=== PATIENT | female | born 1970 ===

== ENCOUNTER 2020-10-23 21:26 | Inpatient (IN) | payer OTHER ==
[~2020-10-23] VITALS: Ht 152.4 cm; Wt 48.4 kg
[2020-10-23] MEDS ORDERED: CIPROFLOXACIN IV 400MG/200ML 200 ML IV SCH (22:15)
[2020-10-23] MEDS ORDERED: metroNIDAZOLE 500MG/100ML IVPB 100 ML IV SCH (22:15)
[2020-10-24] VITALS (12 sets, daily range): BP systolic 102–149; BP diastolic 65–85
[2020-10-24] MEDS: PANTOPRAZOLE 40 MG (PROTONIX) VIAL IV SCH ×2 (01:19→08:59)
[2020-10-24] MEDS: LACTATED RINGERS 1,000 ML IV SCH ×5 (01:19→21:41)
[2020-10-24] MEDS: ONDANSETRON 4 MG (ZOFRAN) ORAL DISSOLVE TAB PO PRN ×2 (01:19→07:02)
[2020-10-24] MEDS: morphine INJ 4 MG/ML 1 ML (VIAL/SYRINGE) IVP PRN ×8 (01:19→23:50)
[2020-10-24 08:38] LABS: BASOPHILS % (AUTO) 0 % (0-10); EOSINOPHILS % (AUTO) 0 % (0-10); HEMATOCRIT 34 % (35-52); HEMOGLOBIN 11.3 g/dL (11.5-16.0); LYMPHOCYTES % (AUTO) 10 % (12-44); MEAN CORPUSCULAR HEMOGLOBIN 32 pg (25-34); MEAN CORPUSCULAR HGB CONC 33 g/dL (32-36); MEAN CORPUSCULAR VOLUME 95 fL (80-99); MEAN PLATELET VOLUME 9.4 fL (9.0-12.2); MONOCYTES # (AUTO) 0.4 10^3/uL (0.0-1.0); MONOCYTES % (AUTO) 4 % (0-12); NEUTROPHILS # (AUTO) 8.4 10^3/uL (1.8-7.8); NEUTROPHILS % (AUTO) 85 % (42-75); PLATELET COUNT 193 10^3/uL (130-400); WHITE BLOOD COUNT 9.8 10^3/uL (4.3-11.0)
[2020-10-24] MEDS: CIPROFLOXACIN IV 400MG/200ML 200 ML IV SCH ×2 (08:57→21:00)
[2020-10-24 08:58] LABS: ALBUMIN 3.2 GM/DL (3.2-4.5); CALCIUM 8.5 MG/DL (8.5-10.1); CREATININE SERUM 0.72 MG/DL (0.60-1.30); POTASSIUM 3.7 MMOL/L (3.6-5.0); TOTAL PROTEIN 5.6 GM/DL (6.4-8.2)
[2020-10-24] MEDS: metroNIDAZOLE 500MG/100ML IVPB 100 ML IV SCH ×2 (08:59→22:03)
--- NOTE | 2020-10-24 09:02 | History & Physical-Surgical ---
DEBORAJAMESON 10/24/20 0902: History of Present Illness History of Present Illness Reason for visit/HPI Acute Diverticulitis Date of Admission Oct 24, 2020 at 00:16 Date Seen by a Provider: Oct 24, 2020 Time Seen by a Provider: 07:16 I consulted on this patient on 10/24/20 07:16 Pt is 50F with diffuse pain in lower abdomen. She reports a known history of diverticulitis occurring this year on August 03 and also September 11, previously managed by "Flagbere" and Allro by her PCP, which resolved without further incident. She also had screening colonoscopy performed October 15 at [facility] by Dr. Hayes, a week later October 22 she reports feeling very abrupt onset of abdominal sx which she feels are consistent with her known diverticulitis. Denies any history of GB or appendix pain or PSH to these organs. She is concerned about the possible need for surgery and if she will need a colostomy bag. Attending Physician Tyrone Lemos DO Admitting Physician Consult Allergies and Home Medications Allergies Coded Allergies: No Known Drug Allergies (Unverified , 10/23/20) Past Ihquvqt-Fhecph-Ynmcoj Hx Patient Social History Employed/Student: employed (Marketing) Tobacco Use?: No Smoking Status: Never a Smoker Smokeless Tobacco Frequency: Never a User Use of E-Cig and/or Vaping dev: No Substance use?: No Alcohol Use?: Yes Alcohol type: Wine Alcohol Frequency: Once in a while Pt feels they are or have been: No Immunizations Up To Date First/Initial COVID19 Vaccinat: BEGINNING OF JUNE Second COVID19 Vaccination Jordan: END June Tetanus Booster (TDap): Unknown Seasonal Allergies Seasonal Allergies: No Current Status Advance Directives: No Communicates: Verbally Primary Language: Malian Preferred Spoken Language: Malian Is interpretation needed?: No Sensory deficits: Vision impairment Implanted or Applied Medical D: None Past Medical History Surgeries: Breast (Reduction about 30yrs ago), Tubal Ligation Diverticulosis Family Medical History GI Disease (both mom and dad had diverticulitis, both have had colon resection (at 50yo & 60yo respectively) with improved outcomes - both still living) Review of Systems Constitutional: No no symptoms reported; see HPI; No chills, No diaphoresis, No dizziness, No fever, No malaise, No weakness, No weight gain, No weight loss, No other EENTM: no symptoms reported; No hearing loss, No blurred vision, No double vision Respiratory: no symptoms reported Cardiovascular: no symptoms reported Gastrointestinal: RLQ, LLQ Genitourinary: no symptoms reported Control/STD Prophylaxis: Other Musculoskeletal: no symptoms reported Skin: no symptoms reported Psychiatric/Neurological: No Symptoms Reported Physical Exam Vital Signs Vital Signs - First Documented 10/24/20 01:23 Temp 37.0 Pulse 88 Resp 20 B/P (MAP) 149/85 (106) Pulse Ox 97 O2 Delivery Room Air Capillary Refill : Height, Weight, BMI Height: '" Weight: lbs. oz. kg; 20.83 BMI Method: General Appearance: WD/WN, Mild Distress Eyes: Bilateral Eye PERRL, Bilateral Eye EOMI HEENT: PERRL/EOMI, Pharynx Normal, Moist Mucous Membranes Neck: Full Range of Motion, Normal Inspection, Non Tender, Supple Respiratory: Chest Non Tender, Lungs Clear, Normal Breath Sounds, No Accessory Muscle Use, No Respiratory Distress Cardiovascular: Regular Rate, Rhythm, No Edema, No Gallop, No Murmur, Normal P eripheral Pulses Gastrointestinal: Normal Bowel Sounds, No Organomegaly, No Pulsatile Mass; No Non Tender; Guarding, Rebound, Tenderness (Postive Rovsing sign and McBurney pt and heal strike tenderness, negative psoas/oberator sign.) Neurologic/Psychiatric: Alert, Oriented x3, No Motor/Sensory Deficits, Normal Mood/Affect, portfolio accountant II-XII Norm as Tested Reflexes: 2+ Bicep (R), 2+ Bicep (L) Skin: Normal Color, Warm/Dry Lymphatic: No Adenopathy Data Review Labs Laboratory Tests 10/24/20 08:30: White Blood Count 9.8, Red Blood Count 3.58L, Hemoglobin 11.3L, Hematocrit 34L, Mean Corpuscular Volume 95, Mean Corpuscular Hemoglobin 32, Mean Corpuscular Hemoglobin Concent 33, Red Cell Distribution Width 12.9, Platelet Count 193, Mean Platelet Volume 9.4, Immature Granulocyte % (Auto) 1, Neutrophils (%) (Auto) 85H, Lymphocytes (%) (Auto) 10L, Monocytes (%) (Auto) 4, Eosinophils (%) (Auto) 0, Basophils (%) (Auto) 0, Neutrophils # (Auto) 8.4H, Lymphocytes # (Auto) 1.0, Monocytes # (Auto) 0.4, Eosinophils # (Auto) 0.0, Basophils # (Auto) 0.0, Immature Granulocyte # (Auto) 0.1, Sodium Level 139, Potassium Level 3.7, C hloride Level 110H, Carbon Dioxide Level 23, Anion Gap 6, Blood Urea Nitrogen 7, Creatinine 0.72, Estimat Glomerular Filtration Rate 85, BUN/Creatinine Ratio 10, Glucose Level 105, Calcium Level 8.5, Corrected Calcium 9.1, Total Bilirubin 1.0, Aspartate Amino Transf (AST/SGOT) 14, Alanine Aminotransferase (ALT/SGPT) 15, Alkaline Phosphatase 37L, Total Protein 5.6L, Albumin 3.2 Assessment/Plan Assessment/Plan Admission Diagonsis Acute Diverticulitis with possible perforation Plan - Review CT and possible colonoscopy or diagnostic laproscopy TYRONE LEMOS DO 10/24/20 1044: History of Present Illness History of Present Illness Reason for visit/HPI Pt admitted for Acute Peforated Diverticulitis HPI: Pt is 50F with diffuse pain in lower abdomen. She reports a known history of diverticulitis occurring this year on August 03 and also September 11, previously managed by "Flagyl" and Cipro by her PCP, which resolved without further incident. She also had screening colonoscopy performed October 15 at [facility] by Dr. Hayes, a week later October 22 she reports feeling very abrupt onset of abdominal sx which she feels are consistent with her known diverticulitis. Denies any history of GB or appendix pain or PSH to these organs. She is concerned about the possible need for surgery and if she will need a colostomy bag. When I saw pt last night right after she had gotten to the hospital she stated the pain was well controlled, with pain meds. She was sitting up in bed and appeared very comfortable. The report from ER physician was WBC of 14 with diffuse peritonitis and CT showed free air and fluid in abdomen. This am she was sitting up in chair in NAD, stating pain has not gotten better and she has been taking Morphine every 2 hours "trying to stay ahead of it". Pain is mostly in the lower abdomen, stated she can lay on right side but not on left side. Pain is constan t, ache with occasional shooting pain. Time Seen by a Provider: 00:31 Allergies and Home Medications Allergies Coded Allergies: No Known Drug Allergies (Unverified , 10/23/20) Patient Home Medication List Home Medication List Reviewed: Yes Past Lixvpss-Hoopqw-Zfnhoa Hx Patient Social History Marrital Status: Tobacco Use?: No Alcohol Use?: Yes (on occasions) Alcohol type: Wine Alcohol Frequency: Once in a while Past Medical History Surgeries: Breast (Reduction about 30yrs ago), Tubal Ligation Diverticulosis Family Medical History GI Disease (both mom and dad had diverticulitis, both have had colon resection (at 50yo & 60yo respectively) with improved outcomes - both still living) Review of Systems Constitutional: No chills, No diaphoresis, No dizziness, No fever, No malaise, No weakness EENTM: No hearing loss, No blurred vision, No double vision Respiratory: No cough, No dyspnea on exertion Cardiovascular: No chest pain, No palpitations Gastrointestinal: RLQ, LLQ; No nausea, No vomiting Genitourinary: No dysuria, No frequency, No hematuria Musculoskeletal: No joint swelling, No muscle pain Skin: No change in color, No change in hair/nails Psychiatric/Neurological: Denies Anxiety, Denies Depressed, Denies Seizure, Denies Tremors Physical Exam General Appearance: No Apparent Distress, WD/WN Eyes: Bilateral Eye PERRL, Bilateral Eye EOMI HEENT: Pharynx Normal, Moist Mucous Membranes; No Scleral Icterus (L), No Scleral Icterus (R) Neck: Non Tender, Supple Respiratory: Chest Non Tender, Lungs Clear, Normal Breath Sounds, No Accessory Muscle Use, No Respiratory Distress Cardiovascular: Regular Rate, Rhythm, No Murmur Gastrointestinal: Normal Bowel Sounds, No Organomegaly, No Pulsatile Mass, Guarding (voluntary), Rebound, Tenderness (Postive Rovsing sign and McBurney pt and heal strike tenderness, negative psoas/oberator sign. Not diffuse only in lower abdomen) Rectal: Deferred Back: No CVA Tenderness, No Vertebral Tenderness Extremity: Non Tender, No Calf Tenderness, No Pedal Edema Neurologic/Psychiatric: Alert, Oriented x3, Normal Mood/Affect, portfolio accountant II-XII Norm as Tested Skin: Normal Color, Warm/Dry Lymphatic: No Adenopathy (neck, axilla or groin) Assessment/Plan Assessment/Plan Admission Diagonsis Acute Diverticulitis with perforation Admission Status: Inpatient Order (span 2 midnights) Reason for Inpatient Admission: Pt may need mjor colon resection (which would be longer than 2 midnights) and if not will be npo for at least 2 midnights if we just wash out abdomen and leave drain. Assessment/Plan Acute Diverticulitis with perforation I was able to review the CT last night (clouded over from [facility]) and I did not see a large abscess collection. I did see a moderate amount of free air throughout the belly and inflammation down around the sigmoid colon. I went over options with pt: 1) IV ABX and wait and see 2) Laparoscopy with washout and drain placement 3) End colostomy with colon resection. I think the best option is laparoscopy and hopefully all she will need is the washout, but also preparing for the fact that she may need Colostomy depending on what we find. We also had a long discussion about how and why diverticula develop and what causes perforation. I talked to her about this last night and then again this am with her . All questions answered to their satisfaction. I don't think we can just watch because pain is not getting better; although WBC is normal today. Supervisory-Addendum Brief Verification & Attestation Participated in pt care: history, MDM, physical Personally performed: exam, history, MDM, supervision of care Care discussed with: Medical Student Procedures: n/a Verification and Attestation of Medical Student E/M Service A medical student performed and documented this service. I then reviewed and verified all information documented by the medical student and made modifications to such information, when appropriate. I personally performed a physical exam, medical decision making and then discussed any differences between the notes and made revisions as necessary to create one note. Tyrone Lemos , 10/24/20 , 10:54 JAMESON CAZARES Oct 24, 2020 09:02 TYRONE LEMOS DO Oct 24, 2020 10:44
[2020-10-24] MEDS ORDERED: LACTATED RINGERS 1,000 ML IV PRN ×3 (09:30→12:45)
[2020-10-24] MEDS ORDERED: proPOfol 200 MG/20 ML (DIPRIVAN) VIAL IV ONE (11:24)
[2020-10-24] MEDS ORDERED: ROCURONIUM 10 MG/ML 5 ML SYRINGE IV ONE (11:24)
[2020-10-24] MEDS ORDERED: LIDOCAINE PF 2% 5 ML (XYLOCAINE) VIAL ONE (11:24)
[2020-10-24] MEDS ORDERED: fentaNYL INJ 100 MCG/2 ML AMP ONE (11:24)
[2020-10-24] MEDS ORDERED: MIDAZOLAM 2 MG/2 ML (VERSED) VIAL ONE (11:24)
[2020-10-24] MEDS ORDERED: NEOSTIGMINE 3 MG/3 ML VIAL ONE (12:48)
[2020-10-24] MEDS ORDERED: SEVOFLURANE (ULTANE) 15 ML INHAL SOLN ONE ×2 (12:48→13:14)
[2020-10-24] MEDS ORDERED: ONDANSETRON 4 MG/2 ML (SDV) Z0FRAN ONE (12:48)
[2020-10-24] MEDS ORDERED: GLYCOPYRROLATE 0.2 MG/ML (ROBINUL) 2 ML VIAL ONE (12:49)
--- NOTE | 2020-10-24 13:24 | Anesthesia-General Post-Op ---
General Patient Condition Mental Status/LOC: Same as Preop Cardiovascular: Satisfactory Nausea/Vomiting: Absent Respiratory: Satisfactory Pain: Controlled Complications: Absent Post Op Complications Complications None Follow Up Care/Instructions Patient Instructions None needed. Anesthesia/Patient Condition Patient Condition Patient is doing well, no complaints, stable vital signs, no apparent adverse anesthesia problems. No complications reported per nursing. LYNDSEY BIANCHI CRNA Oct 24, 2020 13:23
[2020-10-24] MEDS ORDERED: morphine INJ 10 MG/ML 1ML (SYR OR VIAL) IVP ONE (13:30)
[2020-10-24] MEDS ORDERED: MEPERIDINE (DEMEROL) INJ 50 MG/ML IVP ONE (13:30)
[2020-10-24] MEDS ORDERED: HYDROmorphone 2 MG/ML VIAL (DILAUDID) IV ONE (13:30)
[2020-10-24] MEDS ORDERED: PROMETHAZINE INJ 25 MG/ML (PHENERGAN) AMP IVP ONE (13:30)
[2020-10-24] MEDS ORDERED: fentaNYL INJ 100 MCG/2 ML AMP IVP ONE (13:30)
[2020-10-24] MEDS: ONDANSETRON 4 MG/2 ML (SDV) Z0FRAN IVP PRN ×4 (13:57→20:59)
--- NOTE | 2020-10-24 16:43 | Progress Note-Post Operative ---
Post-Operative Progess Note Surgeon (s)/Welfare Administrator (s) Surgeon TYRONE GORE DO Welfare Administrator: KULWINDER Teresa Pre-Operative Diagnosis Acute perforated Diverticulitis Post-Operative Diagnosis same Procedure & Operative Findings Date of Procedure 10/24/20 Procedure Performed/Findings Diagnostic Laparoscopy with abdominal washout and drain placement Anesthesia Type GET Estimated Blood Loss Estimated blood loss (mL): scant Specimens/Packing Specimens Removed intra-abdominal fluid culture Packin TYRONE GORE DO Oct 24, 2020 16:43
--- NOTE | 2020-10-24 19:37 | OPERATIVE REPORT ---
DATE OF SERVICE: 10/24/2020 PREOPERATIVE DIAGNOSIS: Acute perforated diverticulitis. POSTOPERATIVE DIAGNOSIS: Acute perforated diverticulitis. PROCEDURE: Diagnostic laparoscopy with abdominal washout and drain placement. SURGEON: Mic Lemos DO MAINTENANCE SUPERVISOR MECHANICAL: Garry , MS3. ANESTHESIA: General endotracheal tube. SPECIMEN: Consent was obtained. Intraabdominal fluid culture. BLOOD LOSS: Scant. FLUIDS: Per anesthesia. POSTOPERATIVE CONDITION: Stable. INDICATION FOR PROCEDURE: The patient is a 50-year-old female, who has acute perforated diverticulitis. CT showed some moderate amount of free air and abscess in the abdomen. FINDINGS: The patient had purulent fluid throughout the abdomen, did not see any gross fecal contamination. PROCEDURE NOTE: After informed consent was obtained, the patient was brought to the operating room, placed on the operating table in supine position. She was sterilely prepped and draped in normal fashion. Local lidocaine was used to infiltrate the skin above the umbilicus. I made an incision with 11 blade, carried down through the skin into subcutaneous tissue, then deepened down to subcutaneous tissue with Bovie electrocautery down to fascia. Fascia was incised with Bovie electrocautery and bluntly entered the abdomen, swept a finger around, placed limited trocar port under direct visualization. Created pneumoperitoneum and then looked in the abdomen, soft purulent fluid above the liver as well as in the right and left lower gutter and in the right upper abdomen as well. At this point, then placed 2 more 5 mm ports, one suprapubically and one in the subxiphoid using local lidocaine, 11 blade for stab incision and VersaStep system, all done under direct visualization, started suctioning at all this purulent fluid and then sent this for culture. The patient placed slightly Trendelenburg and rotated to the right visual to be able to look at the sigmoid colon, started peeling away some of the small intestine, found some more purulent fluid, no more pockets, but did not see any feculent or any gross fecal contamination. The sigmoid colon looked good. Otherwise, the rest of the colon and small intestine did not look bad and at this point, did not want to look too much to try and find a hole or create a hole since there was not any fecal material, so copiously irrigated with 4 liters of warm normal saline until all of this came back completely clear. Looked around the abdomen, did not see anything else obvious and at this point, then placed a 19-Russian Michele drain through the supraumbilical port, grasped with the suprapubic port and then pulled this out, sutured this in place with a 2-0 nylon suture and then placed this in the pelvis as well as the left lower quadrant right across the spot looked like most likely maybe have been a small perforation of the sigmoid colon. This laid in nicely. The patient was then placed supine, removed all ports under direct visualization, closed the supraumbilical incision with an 0 Vicryl [id number] suture. Copiously irrigated the incisions and then closed the small 5 mm supraumbilical incision with a three interrupted 4-0 undyed Monocryl subcuticular stitches. Area was cleaned and dried. Dermabond placed as well as Band-Aid. The patient tolerated the procedure. She was transferred to recovery room in stable condition. The 19-Russian Michele drain was hooked up to bulb suction. Job ID: [id number] DocumentID: [id number] Dictated Date: 10/24/2020 16:43:28 Collar Shaper Operator Date: 10/24/2020 19:36:04 Dictated By: MIC LEMOS DO
[2020-10-25] VITALS: BP 108/65
[2020-10-25] MEDS: morphine INJ 4 MG/ML 1 ML (VIAL/SYRINGE) IVP PRN ×4 (02:04→22:40)
[2020-10-25] MEDS: ONDANSETRON 4 MG (ZOFRAN) ORAL DISSOLVE TAB PO PRN (02:06)
[2020-10-25] MEDS: LACTATED RINGERS 1,000 ML IV SCH ×4 (04:04→19:25)
[2020-10-25 08:00] VITALS: BP 111/66
[2020-10-25] MEDS: CIPROFLOXACIN IV 400MG/200ML 200 ML IV SCH ×2 (09:08→21:32)
[2020-10-25] MEDS: PANTOPRAZOLE 40 MG (PROTONIX) VIAL IV SCH (09:08)
[2020-10-25] MEDS: metroNIDAZOLE 500MG/100ML IVPB 100 ML IV SCH ×2 (09:08→21:32)
--- NOTE | 2020-10-25 09:43 | Progress Note - Surgery ---
JOANARIVERJAMESON 10/25/20 0943: Subjective Date Seen by a Provider: Oct 25, 2020 Time Seen by a Provider: 09:28 Subjective/Events-last exam Pt is post op from diagnostic lap and wash out secondary to diverticulitis with minor perf. Pt was resting in bed, but has been up several times attempting to urinate. She reports feeling fullness in her bladder without the urge to urinate. Pt has had 2 straight cath drainage. Nursing was in room and noted only 158ml currently in bladder. Pt reports greatly reduced pain in the abdomen, which is soft and non-tender. Pt conservatively using ice chips to moisten her mouth and is requesting less morphine secondary to minor headaches and funny taste in her mouth. The abdomnial drain has been emptied x3 and currently contains a small amount of pink serous fluid. Review of Systems General: No Chills, No Night Sweats, No Fatigue, No Malaise HEENT: Head Aches; No Visual Changes, No Eye Pain, No Ear Pain, No Dysphasia Cardiovascular: No: Chest Pain, Palpitations, Orthopnea Gastrointestinal: No: Nausea, Vomiting, Abdominal Pain, Diarrhea, Constipation, Melena Genitourinary: No Dysuria, No Frequency, No Incontinence, No Hematuria; Retention Musculoskeletal: No: neck pain, shoulder pain, arm pain, back pain, hand pain, leg pain, foot pain Neurological: No: Weakness, Numbness, Incoordination, Change in speech, Confusion, Seizures Objective Exam Vital Signs Date Time Temp Pulse Resp B/P (MAP) Pulse Ox O2 Delivery O2 Flow Rate FiO2 10/25/20 08:00 37.0 65 20 111/66 (81) 100 Room Air 10/25/20 00:00 37.0 62 16 108/65 (79) 97 Room Air 10/24/20 20:00 Room Air 10/24/20 19:56 37.1 91 18 125/68 (87) 94 Room Air 10/24/20 16:00 37.4 96 18 117/68 (84) 90 Room Air 10/24/20 14:46 97 Nasal Cannula 2.00 10/24/20 14:15 Room Air 10/24/20 14:10 37.3 18 128/79 (95) 97 Room Air 10/24/20 14:00 19 121/80 (94) 95 OxyMask 2 10/24/20 13:50 21 119/82 (94) 95 OxyMask 2 10/24/20 13:45 Room Air 10/24/20 13:40 20 138/71 (93) 96 OxyMask 2 10/24/20 13:30 16 136/85 (102) 100 OxyMask 4 10/24/20 13:30 OxyMask 4 10/24/20 13:20 20 106/79 (88) 100 OxyMask 6 10/24/20 13:15 36.8 22 109/76 (87) 100 OxyMask 8 10/24/20 13:15 OxyMask 8 I & O 10/25/20 07:00 Intake Total 1600 ml Output Total 1625 ml Balance -25 ml Capillary Refill : General Appearance: No Apparent Distress, WD/WN HEENT: PERRL/EOMI, Pharynx Normal, Moist Mucous Membranes; No Scleral Icterus (L), No Scleral Icterus (R) Neck: Full Range of Motion, Normal Inspection, Non Tender, Supple Respiratory: Chest Non Tender, Lungs Clear, Normal Breath Sounds, No Accessory Muscle Use, No Respiratory Distress Cardiovascular: Regular Rate, Rhythm, No Edema, No Gallop, No Murmur, Normal Peripheral Pulses Peripheral Pulses: 2+ Radial Pulses (R), 2+ Radial Pulses (L) Gastrointestinal: normal bowel sounds, non tender, soft, no organomegaly, no pulsatile mass Extremity: Normal Capillary Refill, Normal Range of Motion, Non Tender, No Calf Tenderness, No Pedal Edema Neurologic/Psychiatric: Alert, Oriented x3, No Motor/Sensory Deficits, Normal Mood/Affect, filing writer II-XII Norm as Tested Skin: Normal Color, Warm/Dry Lymphatic: No Adenopathy (neck, axilla or groin) Results Lab Microbiology 10/24/20 MRSA Screen - Final, Complete MRSA not isolated Assessment/Plan Assessment/Plan Assessment/Plan Acute Diverticulitis with perforation Plan - monitor for pain and changes in abdominal drainage TYRONE LEMOS DO 10/25/20 1248: Subjective Time Seen by a Provider: 11:04 Subjective/Events-last exam Pt seen and examined, state pain is better but having pressure in bladder area. Review of Systems Pulmonary: No Dyspnea, No Cough Cardiovascular: No: Chest Pain, Palpitations Gastrointestinal: Abdominal Pain; No: Nausea, Vomiting Genitourinary: Retention (unable to void, has been straight cathed 3 times) Objective Exam General Appearance: No Apparent Distress, WD/WN HEENT: Moist Mucous Membranes Respiratory: Lungs Clear, Normal Breath Sounds, No Accessory Muscle Use, No Respiratory Distress Cardiovascular: Regular Rate, Rhythm, No Murmur Gastrointestinal: soft, no organomegaly, tenderness (mostly at incision sites, some suprapubic) Extremity: No Calf Tenderness, No Pedal Edema Neurologic/Psychiatric: Alert, Oriented x3 Assessment/Plan Assessment/Plan Assessment/Plan Urinary Retention S/P Abd washout for Acute Diverticulitis with perforation IV fluids, NPO except small amount of ice chips, IV ABX, pain control, anti- emetics as needed. Pt encouraged to ambulate and use IS. Was going to start pt on some Flomax, but nurse came in and told me she finally voided 300ml on her own. Will monitor to make sure no more urinary retention. Supervisory-Addendum Brief Verification & Attestation Participated in pt care: history, MDM, physical Personally performed: exam, history, MDM, supervision of care Care discussed with: Medical Student Procedures: n/a Verification and Attestation of Medical Student E/M Service A medical student performed and documented this service. I then reviewed and verified all information documented by the medical student and made modifications to such information, when appropriate. I personally performed a physical exam, medical decision making and then discussed any differences between the notes and made revisions as necessary to create one note. Tyrone Lemos , 10/25/20 , 12:48 JAMESON CAZARES Oct 25, 2020 09:43 TYRONE LEMOS DO Oct 25, 2020 12:48
[2020-10-25 11:47] VITALS: BP 125/85
[2020-10-25 16:18] VITALS: BP 121/81
[2020-10-25 19:33] VITALS: BP 120/83
[2020-10-25 23:30] VITALS: BP 121/71
[2020-10-26] MEDS: LACTATED RINGERS 1,000 ML IV SCH ×3 (01:58→14:22)
[2020-10-26] MEDS: ONDANSETRON 4 MG (ZOFRAN) ORAL DISSOLVE TAB PO PRN (02:57)
[2020-10-26 04:00] VITALS: BP 126/76
--- NOTE | 2020-10-26 07:49 | Progress Note - Surgery ---
DERRICK NETTLES 10/26/20 0749: Subjective Date Seen by a Provider: Oct 26, 2020 Time Seen by a Provider: 07:44 Subjective/Events-last exam Patient is post-op day 2 from diagnostic lap and wash out secondary to diverticulitis with minor perforation Patient has been able to urinate without pain. Patient had been up and OOB yesterday. Patient reports minor tenderness to palpation in abdomen but otherwise no pain Patient is still using ice chips to moisten her mouth. Patient still reports of a headache this morning. The abdominal drain was changed just prior to me seeing her, contained a small amount of yellow serous fluid. Objective Exam Vital Signs Date Time Temp Pulse Resp B/P (MAP) Pulse Ox O2 Delivery O2 Flow Rate FiO2 10/26/20 04:00 37.0 60 20 126/76 (93) 97 Room Air 10/25/20 23:30 36.1 69 20 121/71 (88) 96 Room Air 10/25/20 20:00 Room Air 10/25/20 19:33 37.2 72 18 120/83 (95) 98 Room Air 10/25/20 16:18 36.8 80 20 121/81 (94) 98 Room Air 10/25/20 11:47 36.8 68 20 125/85 (98) 98 Room Air 10/25/20 10:30 Room Air 10/25/20 08:00 37.0 65 20 111/66 (81) 100 Room Air I & O 10/26/20 07:00 Output Total 960 ml Balance -960 ml Capillary Refill : General Appearance: No Apparent Distress, WD/WN Neck: Non Tender, Supple Respiratory: Lungs Clear, Normal Breath Sounds, No Accessory Muscle Use, No Respiratory Distress Cardiovascular: Regular Rate, Rhythm, No Murmur Peripheral Pulses: 2+ Radial Pulses (R), 2+ Radial Pulses (L) Gastrointestinal: normal bowel sounds, soft, no organomegaly, tenderness (minor tenderness at incision sites) Extremity: Non Tender, No Calf Tenderness, No Pedal Edema Neurologic/Psychiatric: Alert, Oriented x3 Skin: Normal Color, Warm/Dry Results Lab Microbiology 10/24/20 MRSA Screen - Final, Complete MRSA not isolated Assessment/Plan Assessment/Plan Assessment/Plan S/P Abd washout for Acute Diverticulitis with perforation IV fluids, NPO except small amount of ice chips, IV ABX, pain control, anti- emetics as needed. Pt encouraged to ambulate and use IS. MIC LEMOS DO 10/26/20 1219: Subjective Time Seen by a Provider: 08:46 Subjective/Events-last exam Pt seen and examined, states she is doing better. Main complaint is that she is cooped up in room, still has mild LONGO, no abdominal pain but some pressure at drain site. Also had some nausea earlier, but thinks she is better now. Review of Systems General: No Chills, No Night Sweats Pulmonary: No Dyspnea, No Cough Cardiovascular: No: Chest Pain, Palpitations Gastrointestinal: Nausea, Abdominal Pain; No: Vomiting Objective Exam General Appearance: No Apparent Distress, WD/WN Respiratory: Lungs Clear, Normal Breath Sounds, No Accessory Muscle Use, No Respiratory Distress Cardiovascular: Regular Rate, Rhythm, No Murmur Gastrointestinal: soft, no organomegaly, tenderness (minor tenderness at incision sites), other (drain with serous fluid) Assessment/Plan Assessment/Plan Assessment/Plan S/P Abd washout for Acute Diverticulitis with perforation IV fluids, will start clears and switch to PO ABX, pain control - will stop Morphine and she can try Tylenol, anti-emetics as needed. Pt encouraged to ambulate and use IS. Microbiology showed no growth, may send her home on no ABX Supervisory-Addendum Brief Verification & Attestation Participated in pt care: history, MDM, physical Personally performed: exam, history, MDM, supervision of care Care discussed with: Medical Student Procedures: n/a Verification and Attestation of Medical Student E/M Service A medical student performed and documented this service. I then reviewed and verified all information documented by the medical student and made modifications to such information, when appropriate. I personally performed a physical exam, medical decision making and then discussed any differences between the notes and made revisions as necessary to create one note. Mic Lemos , 10/26/20 , 12:19 THODERRICK Oct 26, 2020 07:49 MIC LEMOS DO Oct 26, 2020 12:19
[2020-10-26 08:00] VITALS: BP 141/84
[2020-10-26] MEDS: CIPROFLOXACIN IV 400MG/200ML 200 ML IV SCH ×2 (08:29→21:03)
[2020-10-26] MEDS: PANTOPRAZOLE 40 MG (PROTONIX) VIAL IV SCH (08:29)
[2020-10-26] MEDS: metroNIDAZOLE 500MG/100ML IVPB 100 ML IV SCH ×2 (08:29→19:22)
[2020-10-26] MEDS ORDERED: ACETAMINOPHEN 325 MG TABLET PO PRN (10:45)
[2020-10-26 12:00] VITALS: BP 150/95
[2020-10-26 16:05] VITALS: BP 152/84
[2020-10-26 19:45] VITALS: BP 169/92
[2020-10-26 23:30] VITALS: BP 161/97
[2020-10-27] MEDS: LACTATED RINGERS 1,000 ML IV SCH ×3 (01:12→08:30)
[2020-10-27 08:00] VITALS: BP 180/84
--- NOTE | 2020-10-27 08:16 | Progress Note - Surgery ---
DEBORAJAMESON 10/27/20 0816: Subjective Date Seen by a Provider: Oct 27, 2020 Time Seen by a Provider: 07:37 Subjective/Events-last exam Pt is post-op day 3 from diagnostic lap and wash out secondary to diverticulitis with minor perforation Pt passing flatus and 1 BM this am without blood. Pt has been able to urinate regularly without pain. Pt has been up and walking frequently. Pt reports minor tenderness to palpation in abdomen near incisions but otherwise no pain, no longer using pain meds. The abdominal drain contained a small amount of yellow serous fluid. Pt on liquid diet without nausea/vomiting or signs of significant GI distress. Review of Systems General: No Chills, No Night Sweats, No Fatigue, No Malaise, No Appetite HEENT: No Head Aches, No Visual Changes, No Eye Pain, No Ear Pain, No Dysphasia, No Sinus Congestion, No Post Nasal Drip, No Sore Throat Pulmonary: No Dyspnea, No Cough, No Pleuritic Chest Pain Cardiovascular: No: Chest Pain, Palpitations, Orthopnea, Paroxysmal Noc. Dyspnea, Edema, Lt Headedness Gastrointestinal: No: Nausea, Vomiting, Abdominal Pain, Diarrhea, Constipation, Melena, Hematochezia Genitourinary: No Dysuria, No Frequency, No Incontinence, No Hematuria, No Retention Musculoskeletal: No: neck pain, shoulder pain, arm pain, back pain, hand pain, leg pain, foot pain Neurological: No: Weakness, Numbness, Incoordination, Change in speech, Confusion, Seizures Objective Exam Vital Signs Date Time Temp Pulse Resp B/P (MAP) Pulse Ox O2 Delivery O2 Flow Rate FiO2 10/26/20 23:30 36.7 61 22 161/97 (118) 97 Room Air 10/26/20 19:45 36.8 68 18 169/92 (117) 98 Room Air 10/26/20 19:20 Room Air 10/26/20 16:05 36.6 68 16 152/84 (106) 100 Room Air 10/26/20 12:00 36.1 68 18 150/95 (113) 95 Room Air I & O 10/27/20 07:00 Intake Total 2760 ml Output Total 170 ml Balance 2590 ml Capillary Refill : General Appearance: No Apparent Distress, WD/WN HEENT: PERRL/EOMI, Pharynx Normal, Moist Mucous Membranes Neck: Non Tender, Supple Respiratory: Lungs Clear, Normal Breath Sounds, No Accessory Muscle Use, No Respiratory Distress Cardiovascular: Regular Rate, Rhythm, No Edema, No Gallop, No Murmur, Normal Peripheral Pulses Peripheral Pulses: 2+ Radial Pulses (R), 2+ Radial Pulses (L) Gastrointestinal: normal bowel sounds, soft, no organomegaly, no pulsatile mass, tenderness (minor tenderness at incision sites), other (drain with yellow serous fluid) Extremity: Normal Capillary Refill, Normal Range of Motion, Non Tender, No Calf Tenderness, No Pedal Edema Neurologic/Psychiatric: Alert, Oriented x3, Normal Mood/Affect, earth mover II-XII Norm as Tested Skin: Normal Color, Warm/Dry Lymphatic: No Adenopathy (cervical/axillary) Results Lab Microbiology 10/24/20 Gram Stain - Final, Resulted 10/24/20 Anaerobic Culture - Preliminary, Resulted No anaerobes isolated 10/24/20 Surgical Culture - Preliminary, Resulted No growth 10/24/20 Fungal Culture 1 - Preliminary, Resulted 10/24/20 MRSA Screen - Final, Complete MRSA not isolated Assessment/Plan Assessment/Plan Assessment/Plan S/P Abd washout for Acute Diverticulitis with perforation IV fluids, on clears and switch to PO ABX, pain control - Tylenol, anti-emetics as needed. Pt encouraged to ambulate and use IS. Microbiology showed no growth, may send her home on no ABX MIC LEMOS DO 10/27/20 1259: Subjective Time Seen by a Provider: 11:46 Subjective/Events-last exam Pt seen and examined, states no more headaches and the suprapubic pressure is almost gone. Tolerating clears. Review of Systems General: No Chills, No Night Sweats Pulmonary: No Dyspnea, No Cough Cardiovascular: No: Chest Pain, Palpitations Gastrointestinal: Abdominal Pain (very minor); No: Nausea, Vomiting Objective Exam General Appearance: No Apparent Distress, WD/WN HEENT: Moist Mucous Membranes Respiratory: Lungs Clear, Normal Breath Sounds, No Accessory Muscle Use Cardiovascular: Regular Rate, Rhythm, No Murmur Gastrointestinal: soft, no organomegaly, tenderness (minor tenderness at incision sites), other (drain with yellow serous fluid) Assessment/Plan Assessment/Plan Assessment/Plan S/P Abd washout for Acute Diverticulitis with perforation Increase diet, Tylenol, anti-emetics as needed. IF she tolerates it will send her home. Microbiology showed no growth, will send her home on no ABX Supervisory-Addendum Brief Verification & Attestation Participated in pt care: history, MDM, physical Personally performed: exam, history, MDM, supervision of care Care discussed with: Medical Student Procedures: n/a Verification and Attestation of Medical Student E/M Service A medical student performed and documented this service. I then reviewed and verified all information documented by the medical student and made modifications to such information, when appropriate. I personally performed a physical exam, medical decision making and then discussed any differences between the notes and made revisions as necessary to create one note. Mic Lemos , 10/27/20 , 12:59 JAMESON CAZARES Oct 27, 2020 08:16 MIC LEMOS DO Oct 27, 2020 12:59
[2020-10-27] MEDS: metroNIDAZOLE 500MG/100ML IVPB 100 ML IV SCH (08:29)
[2020-10-27] MEDS: PANTOPRAZOLE 40 MG (PROTONIX) VIAL IV SCH (08:29)
[2020-10-27] MEDS: CIPROFLOXACIN IV 400MG/200ML 200 ML IV SCH (08:35)
[2020-10-27 12:08] VITALS: BP 160/100
--- NOTE | 2020-10-27 13:13 | Discharge Inst-Surgical ---
Discharge Inst-Surgical Depart Medication/Instructions New, Converted or Re-Newed RX: Other (take tylenol or ibuprofen for pain) Patient Instructions Follow up Appt: Make appointment for 1 week. [phone] Instructions: No lifting greater than 20 pounds. No strenuous activity. May shower in 24 hours, no tub bath or soaking. Use incentive spirometer at home as directed. No Smoking Skin/Wound Care: May remove bandages in am. You need to leave the Dermabond on incision it will fall off on it's own. Symptoms to Report: Appetite Changes, Extremity Discoloration, Numbness/Tingling, Swelling Increased, Bleeding Excessive, Eyesight Changes, Pain Increased, Urine Color Change, Constipation(Persistent), Fever over 101 degree F, Pain/Pressure in chest, Urinating Difficulty, Cough Up/Vomit Blood, Heart Beat Irreg/Pounding, Pain/Pressure in jaw, Cramps in feet or legs, Lightheadedness, Pain/Pressure in shoulder, Diarrhea(Persistent), Memory Changes Suddenly, Questions/Concerns, Weight gain consecutive days, Dizziness/Fainting, Nausea/Vomiting, Shortness of Breath, Weight gain over 2 pounds If questions or concerns contact your physician Or seek help at emergency department. Activity Activity as Tolerated: Yes Activity Instructions: Avoid Stress to Incision Driving Instructions: No Driving/Refer to Dr. 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
[2020-10-27 14:41] VITALS: BP 160/100
== END 2020-10-27 15:30 | disposition home or self-care (01) | DRG 358 ==
LOC: 4TH 10-24 00:45
PROVIDERS: ADMIT Surgery; ATTEND Surgery
PROC: 0W9G40Z Drainage of Peritoneal Cavity with Drainage Device, Percutaneous Endoscopic Approach (ICD-10-PCS; principal; 2020-10-24 11:48)
DX: K57.20 Diverticulitis of large intestine with perforation and abscess without bleeding (principal); R33.9 Retention of urine, unspecified; H54.7 Unspecified visual loss
CPT/HCPCS: 36415; 80053; 85025; 87070; 87075; 87076; 87077; 87081; 87101; 87205

== ENCOUNTER → 2020-12-30 | Outpatient (CLI) | payer OTHER | LOC: PREOP 05:50 | PROVIDERS: ATTEND Surgery | DX: Z01.818 Encounter for other preprocedural examination (principal) ==